=== PATIENT | male | born 1965 | race Hispanic/Latino ===

== ENCOUNTER 2022-08-01 13:20 | Emergency (ER) | payer OTHER ==
[~2022-08-01] VITALS: Ht 170.2 cm; Wt 75.0 kg
[2022-08-01] VITALS (9 sets, daily range): BP systolic 136–168; BP diastolic 80–90
[2022-08-01] MEDS ORDERED: VALACYCLOVIR HCL1 GM PO (14:12)
== END 2022-08-01 15:40 | disposition home or self-care (01) | DRG 596 ==
LOC: ED 13:20
DX: B02.9 Zoster without complications (principal)